=== PATIENT | female | born 1955 | race Two or more races ===

== ENCOUNTER 2024-03-27 16:02 | Emergency (ER) | payer MEDICARE, SELFPAY ==
[2024-03-27 16:21] VITALS: BP 116/72; PULSE 76; RESP 18; TEMP 36.6; O2SAT 97; BMI 30.9
--- NOTE | 2024-03-27 16:30 | XR_ITS ---
Examination: Abdomen sonogram, Limited Date and time of exam: March 27, 2024 1730 hours INDICATIONS: Right inguinal hernia pain this week Technique: Real-time cook scale transabdominal sonographic images of the upper abdomen obtained. Findings: 1.9 cm defect in the right groin consistent with hernia defect IMPRESSION: 1. 0.91 cm hernia defect right groin, CT pelvis without contrast follow-up would best confirm bowel present in this hernia defect
--- NOTE | 2024-03-27 16:31 | PD.EDRME ---
Rapid Medical Screening Exam RME Arrival date/time: 03/27/24 16:02 Chief Complaint: Abdominal Pain Time Seen by Provider: 03/27/24 16:21 Vital signs: Vital Signs Temperature 97.8 F 03/27/24 16:21 Pulse Rate 76 03/27/24 16:21 Respiratory Rate 18 03/27/24 16:21 Blood Pressure 116/72 03/27/24 16:21 Pulse Oximetry (%) 97 03/27/24 16:21 Oxygen Delivery Method Room Air 03/27/24 16:21 Vital signs reviewed by provider: Yes RME Narrative: 68-year-old female presents for evaluation of right sided inguinal hernia pain. 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 She reports taking analgesics (cannot recall name) x 4 hours ago with some improvement in symptoms. Patient denies persistent pain, nausea, vomiting, fever, hematuria, skin changes. Patient reports that she thinks that her hernia self reduced prior to arrival to the ED. She is pending an outpatient appointment with surgery at the beginning of April.
--- NOTE | 2024-03-27 18:26 | XR_ITS ---
Examination: CT abdomen without contrast. Coronal 2-D reconstructions. Sagittal 2-D reconstructions. Date and time of exam:March 27, 2024 1850 hrs. Indications: Worsening hernia pain today CTDI: vol (mGy): 6.7 DLP: (mGycm): 194 Technique: Axial images of the abdomen have been obtained, 3 mm slice thickness, abdomen without intravenous contrast 2-D sagittal coronal reconstructions Low dose protocols were performed. One or more of the following dose reduction techniques were used; automated exposure control, adjustment of the mA and/or KV according to patient size, use of iterative reconstruction technique. Findings: 3 mm, 2 mm pulmonary nodules left lower lobe Liver nodular in contour, no focal liver lesions No gallstones No splenic mass No pancreatic mass or peripancreatic edema Normal adrenal glands 2 mm nonobstructing right renal calculus image 72 Aorta normal size Normal appendix Colonic diverticulosis This is an abdomen CT only and does not include the groin inguinal regions Impression: Small pulmonary nodules left lower lobe as above, recommend PA lateral chest follow-up Cirrhosis, no focal liver lesions 2 mm nonobstructing right renal calculus CT pelvis without contrast follow-up would be needed to assess for groin hernias
--- NOTE | 2024-03-27 19:49 | EDNOTE_ITS ---
ED Abdominal Pain RME/HPI General Chief Complaint: Abdominal Pain Stated complaint: I think my hernia ruptured per pt. abd pain Time seen by provider: 03/27/24 16:21 Arrival date/time: 03/27/24 16:02 Limitations: no limitations RME / HPI RME / HPI narrative: 68-year-old female presents for evaluation of right sided inguinal hernia pain. 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 She reports taking analgesics (cannot recall type) x 4 hours [employer] w/ moderate improvement in symptoms. Patient denies persistent pain, nausea, vomiting, fever, hematuria, overlying skin changes at hernia site. Denies cramping abdominal pain and change in bowel habits. Patient reports that she thinks that her hernia self reduced prior to arrival to the ED. She is pending an outpatient appointment with surgery at the beginning of April. Related Data Allergies Allergy/AdvReac Type Severity Reaction Status Date / Time No Known Allergies Allergy Verified 03/27/24 16:03 Review of Systems Constitutional Constitutional: Denies anorexia and Denies fever(s) ENT Ears, Nose, Mouth, and Throat: Denies dizziness Cardiovascular Cardiovascular: Denies chest pain, Denies diaphoresis and Denies dyspnea Respiratory Respiratory: Denies cough and Denies dyspnea Gastrointestinal Gastrointestinal: Reports abdominal pain, Denies change in bowel habits, Denies change in stool character, Denies constipation, Denies nausea, Denies vomiting and Reports other (right sided inguinal hernia. ) Musculoskeletal Musculoskeletal: Denies back pain Integumentary/Breasts Skin/Breast: Denies change in pigmentation, Denies new lesions, Denies skin pain, Denies skin swelling and Denies unusual bruising Neurologic Neurologic: Denies dizziness Past Medical History Social History SMOKING STATUS: Never smoker ED Exam General Limitations: Present no limitations General appearance: Present alert and in no apparent distress Head Head exam: Present atraumatic and normocephalic Eye Eye exam: Present normal appearance and EOMI ENT ENT exam: Present normal exam, normal oropharynx and mucous membranes moist Neck Neck exam: Present normal inspection and full ROM Chest Chest inspection: Present normal inspection and symmetric chest wall rise Respiratory Respiratory exam: Present normal lung sounds bilaterally; Absent respiratory distress Cardiovascular Cardiovascular exam: Present regular rate, +S1 and +S2 Abdominal Exam Abdominal exam: Present soft, normal bowel sounds and hernia (reducible right inguinal hernia. ); Absent distention, tenderness, guarding, rigidity or trauma Rectal Exam Rectal exam: Present deferred Extremities Exam Extremities exam: Present normal inspection and full ROM Back Exam Back exam: Present normal inspection Neurological Exam Neurological exam: Present alert and normal gait Psychiatric Psychiatric exam: Present normal affect Skin Skin exam: Present warm, dry and normal color; Absent cyanosis, erythema, pallor or mottled Course Quality Measures none Orders Category Date Time Status CT abdomen wo con Stat Exams 03/27/24 18:26 Completed US abdomen limited Stat Exams 03/27/24 16:30 Completed Reevaluation(s) Reevaluation #1: Patient reports that her abdominal pain has resolved. I discussed the results of today's workup with the patient and using shared decision making she is agreeable with plan for discharge and follow-up with primary care within the next 2 to 3 days for reevaluation. Patient has a pending surgery consult which I advised her to continue with as planned or tried to have moved up. Patient is stable at the time of discharge. Time: 19:49 Vital Signs Vital signs: Vital Signs Temperature 97.8 F 03/27/24 16:21 Pulse Rate 76 03/27/24 16:21 Respiratory Rate 18 03/27/24 16:21 Blood Pressure 116/72 03/27/24 16:21 Pulse Oximetry (%) 97 03/27/24 16:21 Oxygen Delivery Method Room Air 03/27/24 16:21 Pulse ox 97% on room air, within normal limits. Abdominal Pain MDM MDM Narrative MDM Narrative:: 68-year-old female presented for evaluation of right inguinal hernia prolapse. Vital signs reassuring. Hernia was self reducing in the department on my exam with normal active bowel sounds and no X visit tenderness to palpation. No overlying skin discoloration or exquisite tenderness, pointing away from incarcerated hernia. Does not fit the clinical picture for ischemic bowel. CT abdomen was inconclusive regarding bowel involvement and hernia. Patient's pain was resolved in the department and using shared decision making she was discharged with plan to follow-up with primary care in the next 1 to 2 days. Patient has a pending consultation with general surgery in April which I urged her to continue with as planned. She was given strict return precautions and opportunity to ask questions. Patient stable at time of discharge. Patient data External records reviewed:: [facility] previous records Clinical information provided by:: patient and family (Son.) Social determinants that could affect healthcare access:: none Patient has the following chronic illnesses:: None reported. How is presenting disease/condition affected by chronic disease/condition?: no chronic disease Evaluation data The following diagnostics were reviewed and interpreted by me:: radiology exam(s) Lab and/or radiology exams considered but not ordered:: Labs considered not ordered. Interpretation Summary: Ultrasound significant for right inguinal hernia defect. CT abdomen with incidental finding of lung nodules Medications / Prescriptions Medications or Prescriptions considered but not ordered:: Considered not ordered. Medication administrations:: Considered not ordered. Consultations Consultation(s) initiated? (list below): No Diagnosis Differential diagnosis abdominal pain: abdominal pain, small bowel obstruction and other (Right inguinal hernia, incarcerated hernia.) Most likely diagnosis given after review of the tests above:: Right inguinal hernia. Admission Indicated Admission indicated?: not indicated Admission Request Was there a request for admission?: No Disposition Plan Disposition Plan: Discharge Discharge Attestation Discharge Attestation: The patient and all family members were given an opportunity to ask questions and understood the discharge instructions. Discharge instructions specifically effects, indications for sooner follow up or return to the emergency department, and the expected course of current diagnosis. Patient condition: Stable Discharge Plan Plan Patient Disposition: HOME (Self Care) Disposition Comment: stable Prescriptions/Referrals Referrals: Manan Castillo MD [Primary Care Provider] - In 1 week Problem List Clinical Impression: Hernia, inguinal, right, Incidental lung nodule, Cirrhosis, Right nephrolithiasis Patient/Caregiver Discharge Instructions Other Activity Instructions:: Continue to monitor hernia for overlying skin color changes and worsening pain. Follow lifting precautions as discussed. Take Tylenol or ibuprofen as needed for pain. Return to the ED if your symptoms worsen or change. Education Materials: ED Hernia (Adult) Print Language: Ukrainian Stand Alone Forms: Kathie Award Info., Patient Portal Info Letter PA/RATING OFFICER Supervising Physician PA/JENNIFER Supervising Physician: Dr. Roberson
== END 2024-03-27 20:04 | disposition home or self-care (01) ==
PROVIDERS: Emergency Provider Emergency Medicine; PCP Family Medicine
DX: K40.90 Unilateral inguinal hernia, without obstruction or gangrene, not specified as recurrent (principal); N20.0 Calculus of kidney; K74.60 Unspecified cirrhosis of liver; R91.1 Solitary pulmonary nodule
CPT/HCPCS: 74150; 76705; 99284

== ENCOUNTER 2024-11-16 15:55 | Emergency (ER) | payer MEDICARE, SELFPAY ==
[2024-11-16 16:11] VITALS: BP 137/66; PULSE 67; RESP 20; TEMP 37.2; O2SAT 95; BMI 27.4
--- NOTE | 2024-11-16 16:26 | EKG_ITS ---
[facility] Test Date: 2024-11-16 Pat Name: AMOR ARCE Department: Room: - Gender: Female Proposal Specialist: : [id number] Requested By: Alison Koo Order Number: [id number] Reading MD: Alison Koo Measurements Intervals [place] Rate: 75 P: 56 UT: 180 QRS: 58 QRSD: 90 T: 57 QT: 416 QTc: 466 Interpretive Statements SINUS RHYTHM WITH SINUS ARRHYTHMIA No previous ECG available for comparison /store/[email or web address]/[id number]
--- NOTE | 2024-11-16 16:29 | PD.EDABDPN ---
ED Abdominal Pain RME/HPI General Chief Complaint: Abdominal Pain Stated complaint: 2 Hernia's, lower abdominal pain Time seen by provider: 11/16/24 16:09 Arrival date/time: 11/16/24 15:55 RME / HPI RME / HPI narrative: 69-year-old female patient with significant history of lower abdominal hernia, came in for evaluation regarding complication of hernia. According to her she has been having on and off swelling to the left lower abdomen, getting worse early this afternoon about 2 PM, at this time associated with nausea vomiting and super pain. Denies any fever denies any other complaints. Patient told me that since 2:00 she is unable to pass gas and no bowel movement. Abdominal surgery include hysterectomy and tummy tuck surgery Related Data Allergies Allergy/AdvReac Type Severity Reaction Status Date / Time No Known Allergies Allergy Verified 11/16/24 16:03 Review of Systems Review of Systems Narrative Review of Systems: Review of system reviewed and within normal limits except mentioned in HPI ED Exam Narrative Physical exam: VITAL SIGNS: Reviewed. GENERAL APPEARANCE: Alert and interactive, follows commands, no acute distress, HEAD AND FACE: Non-traumatic. ENT: PERRL, pink conjunctivitis, eyelid no trauma, Mucous membrane moist. NECK: Supple, nontender, no nuchal rigidity. CHEST: No tenderness, no crepitus, no paradoxical movement, no retractions. LUNGS: Clear, well ventilated, symmetric, no rales, no wheezing, no ronchi, no stridor, good breath sounds bilaterally. HEART: Regular rate, regular rhythm, no murmur, no gallops. ABDOMEN: Soft, positive bowel sounds, nondistended, no guarding, right lower abdominal tenderness, with palpable mass, and hernia, no rebound, no masses, RECTAL: Deferred. GENITAL: Deferred. NEUROLOGICAL: Gross motor function intact sensory function intact, Appropriate for age. MUSCULOSKELETAL: low back nontender, full range of motion. EXTREMITIES: Nontender, full range of motion. SKIN: Color pink, dry, no rash, no lacerations, no abrasions, no contusions. LYMPHATICS: Deferred. Course Quality Measures none Orders Category Date Time Status CT Screening NOW Care 11/16/24 18:58 Active EKG (ED ONLY) *Do not use* NOW Care 11/16/24 16:26 Completed EKG (ED ONLY) *Do not use* NOW Care 11/16/24 16:[address] abdomen pelvis w con Stat Exams 11/16/24 18:58 Completed EKG (ED Only) Stat Exams 11/16/24 16:26 Draft EKG (ED Only) Stat Exams 11/16/24 16:28 Ordered CBC Stat Lab 11/16/24 16:39 Completed Comprehensive Metabolic Panel Stat Lab 11/16/24 16:39 Completed Lactate (Lactic Acid) Stat Lab 11/16/24 16:39 Completed Lipase Stat Lab 11/16/24 16:39 Completed Partial Thromboplastin Time Stat Lab 11/16/24 16:39 Completed Prothrombin Time with INR Stat Lab 11/16/24 16:39 Completed UA, C/S IF [Urinalysis, C/S if Indicated] Stat Lab 11/16/24 17:17 Completed Urine Culture Stat Lab 11/16/24 17:17 Received Diazepam Inj [Valium Inj] Med 11/16/24 16:26 Discontinued 5 mg IVP X1 ONE Metoclopramide Inj [Reglan Inj] Med 11/16/24 16:26 Discontinued 10 mg IVP X1 ONE Morphine Inj Med 11/16/24 16:26 Discontinued 4 mg IVP X1 ONE Ringers Lactated 1000 ml [Lactated Ringers] 1,000 ml Med 11/16/24 16:27 Discontinued IV 999 mls/hr Vital Signs Vital signs: Vital Signs Temperature 99.0 F 11/16/24 16:11 Pulse Rate 67 11/16/24 16:11 Respiratory Rate 20 11/16/24 16:11 Blood Pressure 137/66 H 11/16/24 16:11 Pulse Oximetry (%) 95 11/16/24 16:11 Oxygen Delivery Method Room Air 11/16/24 16:11 Abdominal Pain MDM MDM Narrative MDM Narrative:: 69-year-old female patient with significant history of lower abdominal hernia, came in for evaluation regarding complication of hernia. According to her she has been having on and off swelling to the left lower abdomen, getting worse early this afternoon about 2 PM, at this time associated with nausea vomiting and super pain. Denies any fever denies any other complaints. Patient told me that since 2:00 she is unable to pass gas and no bowel movement. Abdominal surgery include hysterectomy and tummy tuck surgery Operative patient received morphine, and placed in a Trendelenburg position, I was able to reduce the femoral hernia without any difficulty. Patient verbalized complete resolution of symptoms. EKG showed sinus rhythm, ventricular rate of 75 bpm, no ST segment elevation or depression noted. CT scan of the abdomen and pelvis showed Cirrhosis Splenomegaly Portal hypertension. Normal appendix. Retroverted uterus with uterine fundal mass and free fluid in the pelvis, recommend pelvic sonography follow-up Right femoral hernia containing small bowel without incarcerated bowel, no definite bowel obstruction Results discussed with the patient. Was advised to follow-up. General surgeon for definitive management of the hernia. Currently patient's not having symptoms. Denies any abdominal pain or inguinal pain Patient data External records reviewed:: None Clinical information provided by:: patient Social determinants that could affect healthcare access:: none Patient has the following chronic illnesses:: History of femoral hernia, How is presenting disease/condition affected by chronic disease/condition?: exacerbated by Evaluation data The following diagnostics were reviewed and interpreted by me:: lab results, radiology exam(s) and EKG tracing(s) Lab and/or radiology exams considered but not ordered:: None Interpretation Summary: See results MDM Medications / Prescriptions Medications or Prescriptions considered but not ordered:: None Medication administrations:: Medication Administration History Discontinued Medications Diazepam (Diazepam Inj 5 Mg/Ml Vial 2 Ml) 5 mg IVP X1 ONE Stop: 11/16/24 16:27 Last Admin: 11/16/24 17:01 Dose: Not Given Documented By: EF Non-Admin Reason: Cancelled by Provider Lactated Ringer's (Lactated Ringers) 1,000 mls @ 999 mls/hr IV .Q1H1M ONE Stop: 11/16/24 17:27 Last Infusion: 11/16/24 17:49 Dose: Infused Documented By: Admin: 11/16/24 16:48 Dose: 999 mls/hr Documented By: EF Metoclopramide HCl (Metoclopramide Inj 5 Mg/Ml Vial 2 Ml) 10 mg IVP X1 ONE; Protocol Stop: 11/16/24 16:27 Last Admin: 11/16/24 16:48 Dose: 10 mg Documented By: EF Morphine Sulfate (Morphine Sulf Inj 10 Mg/Ml Vial) 4 mg IVP X1 ONE Stop: 11/16/24 16:27 Last Admin: 11/16/24 16:48 Dose: 4 mg Documented By: EF Morphine, Reglan, and IV fluids Consultations Consultation(s) initiated? (list below): No Diagnosis Differential diagnosis abdominal pain: abdominal pain and other (Incarcerated femoral hernia, femoral hernia) Most likely diagnosis given after review of the tests above:: Reducible femoral hernia, abdominal pain Admission Indicated Admission indicated?: not indicated Admission Request Was there a request for admission?: No Disposition Plan Disposition Plan: Discharge Discharge Attestation Discharge Attestation: The patient and all family members were given an opportunity to ask questions and understood the discharge instructions. Discharge instructions specifically effects, indications for sooner follow up or return to the emergency department, and the expected course of current diagnosis. Patient condition: Stable Discharge Plan Plan Patient Disposition: HOME (Self Care) Discharge Disposition comment: Stable Prescriptions/Referrals Referrals: Avril Lugo NP [Primary Care Provider] - In 1 week Problem List Clinical Impression: Abdominal pain, Femoral hernia of right side Patient/Caregiver Discharge Instructions Discharge Activity: activity as tolerated Education Materials: ED Hernia (Adult) Additional Instructions: Thank you for the opportunity for serving you today. You are stable for discharged . You are advised to: Follow-up with your PCP in 1 to 2 days Return to ED for worsening of symptoms Increase oral fluids Try to avoid straining, lifting weights, As your PCP to refer you to a surgeon for definitive management of your femoral hernia. Print Language: Pashto Stand Alone Forms: Kathie Award Info., Patient Portal Info Letter
[2024-11-16] MEDS: MORPHINE SULF INJ 10 MG/ML VIAL 4 MG IVP (16:48)
[2024-11-16] MEDS: RINGERS LACTATED 1000 ML 1,000 ML 999 ML IV (16:48)
[2024-11-16] MEDS: METOCLOPRAMIDE INJ 5 MG/ML VIAL 2 ML 10 MG IVP (16:48)
[2024-11-16 16:51] LABS: Lactate (Lactic Acid) 1.3 mMol/L (0.4-2.0)
[2024-11-16 16:55] LABS: Basophils # (Auto) 0.0 Thou/mm3 (0.0-0.2); Basophils % (Auto) 0 % (0-2.5); Eosinophils # (Auto) 0.2 Thou/mm3 (0.0-0.5); Eosinophils % (Auto) 3 % (0-10); Hematocrit 37.1 % (36.0-46.0); Hemoglobin 12.9 g/dL (12.0-16.0); Immature Granulocytes Auto 0.03 Thou/mm3 (0.00-0.00); Lymphocytes # (Auto) 1.7 Thou/mm3 (1.0-4.8); Lymphocytes % (Auto) 26 % (10-50); Mean Corpuscular HGB Conc 34.8 g/dl (31.0-37.0); Mean Corpuscular Hemoglobin 28.2 pg (25.0-35.0); Mean Corpuscular Volume 81 fL (80-100); Monocytes # (Auto) 0.4 Thou/mm3 (0.0-0.8); Monocytes % (Auto) 6 % (0-12); Neutrophils # (Auto) 4.1 Thou/mm3 (1.8-7.7); Neutrophils % (Auto) 65 % (37-80); Nucleated Red Blood Cell # 0.00 Thou/mm3 (0.00-0.00); Nucleated Red Blood Cell % 0 /100 WBC (0); Platelet Count 136 Thou/mm3 (140-440); RDW Standard Deviation 40.6 fL (36.4-46.3); Red Blood Count 4.57 Miln/mm3 (4.00-5.20); White Blood Count 6.4 Thou/mm3 (3.6-11.0)
[2024-11-16 17:14] LABS: Alanine Aminotransferase 42 U/L (10-49); Albumin, Serum 4.1 gm/dL (3.4-4.8); Albumin/Globulin Ratio 1.4 (1.2-2.2); Alkaline Phosphatase 188 U/L (46-116); Anion Gap 12 (7-16); Aspartate Amino Transferase 50 U/L (0-34); BUN/Creatinine Ratio 13 Ratio (12-20); Bilirubin,Total 0.7 mg/dL (0.3-1.2); Blood Urea Nitrogen 8 mg/dL (9-23); Calcium 9.3 mg/dL (8.3-10.6); Calcium (Corrected) 9.3 mg/dL (8.5-10.1); Carbon Dioxide 24.6 mMol/L (20.0-31.0); Chloride 107 mMol/L (98-107); Creatinine (Component) 0.6 mg/dL (0.6-1.3); Estimated Creatinine Clearance 92.1 mL/min (>60); Globulin 3.0 gm/dL (2.3-3.5); Glucose 138 mg/dL (74-106); Lipase 41 U/L (12-53); Osmolality,Calculated 287 (275-295); Potassium 3.5 mMol/L (3.4-5.1); Sodium 144 mMol/L (136-145); Total Protein 7.1 gm/dL (5.7-8.2); eGFR > 60 See Note
[2024-11-16 17:16] LABS: INR 1.1 (0.9-1.3); Partial Thromboplastin Time 26.5 Seconds (22.0-36.0); Prothrombin Time 11.7 Seconds (9.0-12.2)
[2024-11-16 17:29] LABS: Collection Type, Urine Clean Catch; WBC,Urine 0 /hpf (0-5)
[2024-11-16 17:50] LABS: Amorphous Crystals,Urine Present (Absent); Bacteria,Urine 1+; Bilirubin,Urine Negative (Negative); Blood,Urine Negative (Negative); Clarity,Urine Turbid (Clear/Hazy); Color,Urine Lt-Yellow (Lt Yel-Yel); Glucose, Urine Negative (Negative); Ketones,Urine Negative (Negative); Leukocyte Esterase,Urine Negative (Negative); Nitrite,Urine Negative (Negative); PH,Urine 7.5 (5.0-7.0); Protein,Urine Negative (Neg - Trace); RBC,Urine 1 /hpf (0-3); Specific Gravity,Urine 1.018 (1.001-1.035); Squamous Epithelial Cell,Urine 1 /hpf (0-5); Urobilinogen,Urine Negative mg/dL (0.0-1.0)
[2024-11-16 18:07] LABS: Culture Indicated,Urine Yes
[2024-11-16 18:37] VITALS: BP 144/70; PULSE 70; RESP 18; TEMP 36.6; O2SAT 95
--- NOTE | 2024-11-16 18:58 | XR_ITS ---
Examination: CT abdomen with intravenous contrast CT pelvis with intravenous contrast 2-D coronal reconstructions 2-D sagittal reconstructions Date and time of exam:November 16, 2024, 1942 hours Comparison March 27, 2024 INDICATIONS: Abdominal and pelvic pain today, history cirrhosis, right renal calculi. CTDI: vol (mGy) 7171 DLP: (mGycm) 635 Technique: Multiple axial sections of the abdomen and pelvis have been obtained. 64 slice high-resolution scanner used. 3 mm axial sections have been obtained, post intravenous injection 60 cc Isovue 370 2-D sagittal, coronal reconstructions obtained. Low dose protocols were performed. One or more of the following dose reduction techniques were used; automated exposure control, adjustment of the mA and/or KV according to patient size, use of iterative reconstruction technique. Findings: Cirrhosis, liver nodular in contour Significant splenomegaly No gallstones No pancreatic or adrenal mass Portosystemic collateral vessels medial to the spleen No renal or ureteral calculi, no hydronephrosis Aorta normal size Normal appendix Colonic diverticulosis No diverticulitis No bowel obstruction Retroverted uterus with uterine fundal poorly defined mass at least 3 cm Mild free fluid in the pelvis Right femoral hernia containing small bowel without incarcerated bowel Grade 1 spondylolisthesis L5 on S1 with advanced degenerative disc disease at this level IMPRESSION: Cirrhosis Splenomegaly Portal hypertension. Normal appendix. Retroverted uterus with uterine fundal mass and free fluid in the pelvis, recommend pelvic sonography follow-up Right femoral hernia containing small bowel without incarcerated bowel, no definite bowel obstruction
[2024-11-16 21:55] VITALS: BP 143/85; PULSE 74; RESP 18; TEMP 36.7; O2SAT 95
== END 2024-11-16 21:58 | disposition home or self-care (01) ==
PROVIDERS: Emergency Provider Nurse Practitioner Family; PCP Nurse Practitioner Women's Health
DX: K41.90 Unilateral femoral hernia, without obstruction or gangrene, not specified as recurrent (principal); K74.60 Unspecified cirrhosis of liver; K76.6 Portal hypertension; R16.1 Splenomegaly, not elsewhere classified; N85.4 Malposition of uterus; N85.8 Other specified noninflammatory disorders of uterus
CPT/HCPCS: 36415; 74177; 80053; 81001; 83605; 83690; 85025; 85610; 85730; 87086; 93005; 96361; 96374; 96375; 99284; A4649; J2270; J2765; J7120; Q9967